=== PATIENT | male | born 1990 | race Caucasian/White ===

== ENCOUNTER 2017-07-27 18:58 | Emergency (ER) | payer OTHER ==
[2017-07-27] MEDS: CARISOPRODOL 350 MG TAB PO (21:20)
[2017-07-27] MEDS: IBUPROFEN 600 MG TAB PO (21:21)
== END 2017-07-27 21:39 | disposition home or self-care (01) ==
LOC: M ED 18:58
DX: S16.1XXA Strain of muscle, fascia and tendon at neck level, initial encounter (principal); S00.83XA Contusion of other part of head, initial encounter; V49.59XA Passenger injured in collision with other motor vehicles in traffic accident, initial encounter; Y92.410 Unspecified street and highway as the place of occurrence of the external cause; Y93.89 Activity, other specified; Y99.8 Other external cause status; Z88.0 Allergy status to penicillin; F17.210 Nicotine dependence, cigarettes, uncomplicated
CPT/HCPCS: 70450

== ENCOUNTER → 2019-10-09 | Outpatient (REF) | payer BC ==
[~2019-10-09] MED LIST: CYCL10TA PO; IBUP-1022 PO
== END ==
LOC: M LAB REF 11:58
PROVIDERS: ATTEND Physician Assistant
DX: R50.9 Fever, unspecified (principal)
CPT/HCPCS: 87486; 87581; 87633; 87798; U0002